=== PATIENT | female | born 1965 | race Two or more races ===

== ENCOUNTER → 2017-04-11 | Outpatient (CLI) | payer MEDICAID | END | disposition home or self-care (01) | LOC: MAMMO 08:45 | DX: N63.20 Unspecified lump in the left breast, unspecified quadrant (principal); N63.10 Unspecified lump in the right breast, unspecified quadrant; R92.1 Mammographic calcification found on diagnostic imaging of breast | CPT/HCPCS: 76642; 77066 ==

== ENCOUNTER 2017-05-14 09:51 | Day surgery (SDC) | payer MEDICAID ==
[2017-05-14] MEDS ORDERED: SODIUM BICARBONATE 4% (2.4MEQ) 5ML VIAL IV ONE (10:19)
[2017-05-14] MEDS ORDERED: LIDOCAINE HCL/EPINEPHRINE 1%-EPI 1:100,000 30 ML VIAL INFIL ONE (10:22)
[2017-05-14] MEDS ORDERED: STERILE WATER FOR INJECTION 10ML VIAL ONE (10:23)
== END 2017-05-14 13:00 | disposition home or self-care (01) ==
LOC: RAD 09:51 → EDSTATUS 13:31
DX: N60.11 Diffuse cystic mastopathy of right breast (principal); R92.1 Mammographic calcification found on diagnostic imaging of breast
CPT/HCPCS: 19081; 88305; A4216; A4648; J3490